=== PATIENT | male | born 1965 | race Caucasian/White ===

== ENCOUNTER → 2016-10-31 | Outpatient (CLI) | payer OTHER ==
--- NOTE | 2016-10-31 13:39 | Diagnostic Imaging Report ---
Indication: PAIN, history of TIA, history of prior rectal carcinoma Technique: sagittal T1 fast spin echo, axial T1 FLAIR, axial T2 FLAIR, axial T2 FS PROPELLER, axial T2* GRE, axial diffusion weighted images. ADC and exponential ADC maps generated Comparison: 02/28/2011 Findings: No abnormal areas of restricted diffusion to suggest acute infarction. No acute hemorrhage or edema. No mass effect nor midline shift. Normal size ventricles and extra axial CSF spaces. The included orbits are unremarkable. There is minimal right maxillary sinus disease, also previously demonstrated, probably a mucous retention cyst. Vascular flow voids are preserved. No significant interim change Impression: Negative for acute infarct, intracranial bleed, or mass effect
== END | disposition home or self-care (01) ==
LOC: MRI 10:09
DX: R51 Headache (principal); Z86.73 Personal history of transient ischemic attack (TIA), and cerebral infarction without residual deficits; Z85.040 Personal history of malignant carcinoid tumor of rectum
CPT/HCPCS: 70551